=== PATIENT | male | born 1975 | race African-American/Black ===

== ENCOUNTER 2019-01-17 08:20 | Emergency (ER) | payer MEDICARE ==
[~2019-01-17] VITALS: Ht 185.4 cm; Wt 70.3 kg
[2019-01-17] MEDS ORDERED: UNOBMED (08:22)
[2019-01-17 08:25] VITALS: BP 136/93
--- NOTE | 2019-01-17 08:25 | NUR ---
ED Nurse Note: Brought in by RA 29 from home due to left shoulder pain 10/10 and weakness x 2days. hx stroke 2006 and has left side weakness. A/Ox4. No trauma.
[2019-01-17] MEDS ORDERED: Ketorolac 60mg Inj IM ONE (08:30)
--- NOTE | 2019-01-17 08:34 | Emergency Room Report ---
History of Present Illness General Chief Complaint: General Complaint Source: Patient, Medical Record Present Illness HPI 43-year-old male with a self-reported history of OH, stroke with residual left hemiparesis, seizure disorder noncompliant with gabapentin, last seizure 1 year ago, comes ER with left shoulder pain. He reports the pain is constant moderate intensity achy, radiates from his left trip PCM area down to his left arm, with sensation of tingling. He reports no weakness, and EMS report that he was ambulatory at the scene without any history of falls, patient reports he also did not hurt himself other than feeling like he brushed his arm up against a wall, but did not reportedly seem to hurt at the time. Shoulders been hurting since last night. Allergies: Coded Allergies: ERYTHROMYCIN BASE (Verified Allergy, Unknown, 12/07/11) Patient History Past Medical History: see triage record Reviewed Nursing Documentation: PMH: Agreed; PSxH: Agreed Nursing Documentation-PMH Past Medical History: No History, Except For Hx Neurological Problems: Yes - CVA Hx Cerebrovascular Accident: Yes - left side weakness Hx Seizures: Yes Review of Systems All Other Systems: negative except mentioned in HPI Physical Exam Sp02 EP Interpretation: reviewed, normal General Appearance: no apparent distress, alert, non-toxic, other - smells of etoh Head: normocephalic Eyes: bilateral eye normal inspection, bilateral eye PERRL, bilateral eye EOMI ENT: normal ENT inspection, hearing grossly normal, normal pharynx, no angioedema, normal voice, moist mucus membranes Neck: normal inspection, full range of motion, supple, supple/symm/no masses Respiratory: chest non-tender, lungs clear, normal breath sounds, chest symmetrical, palpation of chest normal Cardiovascular #1: normal peripheral pulses, regular rate, rhythm, no edema, no gallop, no JVD, no murmur, no rub Cardiovascular #2: 2+ radial (R), 2+ radial (L) Gastrointestinal: normal inspection, non tender, soft, no mass, no guarding, no rebound Rectal: deferred Genitourinary: normal inspection, no CVA tenderness Musculoskeletal: back normal, gait/station normal, normal range of motion, non- tender, no calf tenderness Neurologic: alert, responsive, client support coordinator III-XII nml as tested, motor strength/tone normal, sensory intact, speech normal Psychiatric: judgement/insight normal, memory normal, mood/affect normal, no suicidal/homicidal ideation Skin: normal color, no rash, warm/dry, normal turgor Lymphatic: no adenopathy Medical Decision Making Diagnostic Impression: Primary Impression: Shoulder pain, left ER Course Patient with L shoulder pain, no major trauma, normal shoulder exam. Given gabapentin bc he reports he used to be on it for seizures, last seizure 1 year ago, and can't afford it. Also given toradol for shoulder pain. Pulse exam, neck, CVS, and neuro exam all also normal. Do not suspect CVA, ACS, PE, spinal cord pathology, or other acute pathology. Patient is coming from a shelter house and will be dc'd back there. EKG Diagnostic Results EKG Time: 08:27 EP Interpretation: no st-t changes, no twi's Rate: normal Rhythm: NSR ST Segments: no acute changes ASA given to the pt in ED: No Rhythm Strip Diag. Results Rhythm Strip Time: 08:27 EP Interpretation: yes Rate: 92 Rhythm: NSR, no PVC's, no ectopy Chest X-Ray Diagnostic Results Chest X-Ray Diagnostic Results : Chest X-Ray Ordered: Yes # of Views/Limited/Complete: 1 View Indication: Chest Pain EP Interpretation: Yes Interpretation: no consolidation, no effusion, no pneumothorax, no acute cardiopulmonary disease Impression: No acute disease Electronically Signed by: Pippa Castillo MD Other X-Ray Diagnostic Results Other X-Ray Diagnostic Results : X-Ray ordered: shoulder # of Views/Limited Vs Complete: Complete Indication: Pain EP Interpretation: Yes Interpretation: no dislocation, no soft tissue swelling, no fractures Impression: No acute disease Electronically Signed by: Pippa Castillo MD Disposition: HOME, SELF-CARE Condition: Stable PIPPA CASTILLO M.D Jan 17, 2019 08:34
[2019-01-17 08:57] LABS: HEMATOCRIT 43.2 % (42.0-52.0); MEAN CORPUSCULAR VOLUME 103 FL (80-99); PLATELET COUNT 262 K/UL (150-450); RED BLOOD COUNT 4.21 M/UL (4.70-6.10); RED CELL DISTRIBUTION WIDTH 12.9 % (11.6-14.8); WHITE BLOOD COUNT 4.5 K/UL (4.8-10.8)
[2019-01-17 09:09] LABS: ANION GAP 13 mmol/L (5-15); BLOOD UREA NITROGEN 13 mg/dL (7-18); CARBON DIOXIDE 26 MMOL/L (21-32); CHLORIDE 103 MMOL/L (98-107); CREATININE 0.7 MG/DL (0.55-1.30); POTASSIUM 4.8 MMOL/L (3.5-5.1); SODIUM 142 MMOL/L (136-145)
[2019-01-17 09:21] LABS: ALANINE AMINOTRANSFERASE 48 U/L (12-78); ALKALINE PHOSPHATASE 64 U/L (46-116); ASPARTATE AMINO TRANSFERASE 77 U/L (15-37); BILIRUBIN,TOTAL 0.5 MG/DL (0.2-1.0)
[2019-01-17 09:26] LABS: ALBUMIN 3.5 G/DL (3.4-5.0)
[2019-01-17] MEDS ORDERED: IBUPROFEN600 MG ORAL (10:21)
[2019-01-17] MEDS ORDERED: GABAPENTIN300 MG ORAL (10:21)
[2019-01-17 10:31] VITALS: BP 138/95
--- NOTE | 2019-01-17 10:31 | NUR ---
ED Nurse Note: Pt cleared by health care Provider for discharge. DC instructions/prescription was given and explained to pt and verbalized understanding of teachings. All medical deviecs such as ID band removed. Pt is AAO x4, ambulatory and left with all personal belongings.
--- NOTE | 2019-01-17 19:15 | Diagnostic Imaging Report ---
Indication: left shoulder pain Findings: 3 views of the left shoulder were obtained. Alignment of the left shoulder is normal. No acute fracture is identified. Soft tissues are unremarkable. Impression: No acute injury
--- NOTE | 2019-01-17 19:15 | Diagnostic Imaging Report ---
Indication: Chest pain Comparison: 07/30/2012 A single view chest radiograph was obtained. Findings: Cardiomediastinal appearance is within normal limits for age. The lungs are clear. Pulmonary vascularity is appropriate. The diaphragmatic contour is smooth and costophrenic angles are sharp. No pleural effusions are identified. There is an old rib fracture on the right. Impression: No acute findings
--- NOTE | 2019-01-18 15:06 | Cardiology Report ---
APPROVED REPORT EKG Measurement Heart [id number] Normal sinus rhythm Rightward axis Pulmonary disease pattern Abnormal ECG
== END 2019-01-17 10:32 | disposition home or self-care (01) ==
LOC: EDBD 08:20 → EMR 08:38
DX: M25.512 Pain in left shoulder (principal); I69.354 Hemiplegia and hemiparesis following cerebral infarction affecting left non-dominant side; Z88.1 Allergy status to other antibiotic agents; G40.909 Epilepsy, unspecified, not intractable, without status epilepticus; Z91.19 Patient's noncompliance with other medical treatment and regimen
CPT/HCPCS: 36415; 71045; 73030; 80053; 84484; 85007; 85025; 93005; 96372; 99284; G0480; 80329

== ENCOUNTER 2019-03-30 04:21 | Emergency (ER) | payer MEDICARE ==
[~2019-03-30] VITALS: Ht 190.5 cm; Wt 68.0 kg
[2019-03-30 04:21] VITALS: BP 146/61
[~2019-03-30 04:21] MED LIST: GABAPENTIN300 MG ORAL; IBUPROFEN600 MG ORAL; ROBAXIN-750750 MG PO; UNOBMED
[2019-03-30 04:51] LABS: BASOPHILS % (AUTO) 1.5 % (0.0-2.0); EOSINOPHILS % (AUTO) 0.6 % (0.0-3.0); HEMATOCRIT 40.8 % (42.0-52.0); HEMOGLOBIN 13.6 G/DL (14.2-18.0); LYMPHOCYTES % (AUTO) 34.7 % (20.0-45.0); MEAN CORPUSCULAR VOLUME 100 FL (80-99); NEUTROPHILS % (AUTO) 60.2 % (45.0-75.0); PLATELET COUNT 320 K/UL (150-450); RED BLOOD COUNT 4.07 M/UL (4.70-6.10); RED CELL DISTRIBUTION WIDTH 12.8 % (11.6-14.8); WHITE BLOOD COUNT 7.2 K/UL (4.8-10.8)
--- NOTE | 2019-03-30 04:56 | Emergency Room Report ---
History of Present Illness General Chief Complaint: Flu Like Symptoms Source: Patient Present Illness HPI This is a 43-year-old male who had a past medical history of a reported CVA in 2006 which left him with tremors. Patient denied having alcohol problems. That he does drink daily. He presents with chief complaint of feeling shaky and weak. [place] nauseous. Denies any fever chills. Does have nausea but no vomiting. No diarrhea. Denies any cough or congestion. This felt weak. Said he drank around 11 PM. Allergies: Coded Allergies: No Known Allergies (Unverified , 01/21/19) Patient History Past Medical History: see triage record, old chart reviewed, CVA/TIA Past Surgical History: other Pertinent Family History: none Social History: Reports: alcohol use; Denies: smoking Immunizations: other Reviewed Nursing Documentation: PMH: Agreed; PSxH: Agreed Nursing Documentation-PMH Past Medical History: No History, Except For Hx Cerebrovascular Accident: Yes - stroke 2006 Review of Systems Constitutional: Reports: malaise, weakness Eye: Denies: eye pain, blurred vision ENT: Denies: ear pain, nose congestion, throat swelling Respiratory: Denies: cough, shortness of breath Cardiovascular: Denies: chest pain, palpitations Gastrointestinal: Reports: nausea; Denies: abdominal pain, diarrhea, vomiting Musculoskeletal: Denies: back pain, joint pain Skin: Denies: rash Neurological: Denies: headache, numbness Endocrine: Denies: increased thirst, increased urine Hematologic/Lymphatic: Denies: easy bruising All Other Systems: negative except mentioned in HPI Physical Exam Vital Signs Date Time Temp Pulse Resp B/P (MAP) Pulse Ox O2 Delivery O2 Flow Rate FiO2 03/30/19 04:15 98.2 98 16 143/84 (103) 100 Room Air vitals normal Sp02 EP Interpretation: reviewed, normal General Appearance: well appearing, no apparent distress, alert Head: normocephalic, atraumatic Eyes: bilateral eye PERRL, bilateral eye EOMI ENT: hearing grossly normal, normal pharynx Neck: full range of motion, supple, no meningismus Respiratory: chest non-tender, lungs clear, normal breath sounds Cardiovascular #1: regular rate, rhythm, no murmur Gastrointestinal: normal bowel sounds, non tender, no mass, no organomegaly, no bruit, non-distended Musculoskeletal: back normal, gait/station normal, normal range of motion Neurologic: alert, oriented x3, other - Tremulous Psychiatric: mood/affect normal Skin: warm/dry Medical Decision Making Diagnostic Impression: Primary Impression: Alcohol intoxication Qualified Codes: F10.920 - Alcohol use, unspecified with intoxication, uncomplicated Additional Impression: Hypokalemia ER Course Patient presents with weakness and nausea. This secondary to alcohol intoxication. She does not believe that he has a drinking problem. I will give him numbers to rehabilitation. He's not suicidal homicidal. Better after IV fluid and Zofran. We'll discharge home once he is more clinically sober. Last Vital Signs Date Time Temp Pulse Resp B/P (MAP) Pulse Ox O2 Delivery O2 Flow Rate FiO2 03/30/19 04:21 97.9 81 20 146/61 99 Room Air Status: improved Disposition: HOME, SELF-CARE Condition: Stable Additional Instructions: Abstain from alcohol. Follow-up with your doctor in 7 days. Return if symptom worsen. Costa Torres MD Mar 30, 2019 04:56
[2019-03-30 05:06] LABS: ANION GAP 17 mmol/L (5-15); BLOOD UREA NITROGEN 10 mg/dL (7-18); CALCIUM 9.1 MG/DL (8.5-10.1); CARBON DIOXIDE 26 MMOL/L (21-32); CHLORIDE 101 MMOL/L (98-107); SODIUM 144 MMOL/L (136-145)
[2019-03-30 05:17] LABS: APPEARANCE,URINE CLEAR; BILIRUBIN, URINE NEGATIVE (NEGATIVE); GLUCOSE, URINE (UA) NEGATIVE (NEGATIVE); KETONES,URINE 4+ (NEGATIVE); LEUKOCYTE ESTERASE ,URINE NEGATIVE (NEGATIVE); NITRITE,URINE NEGATIVE (NEGATIVE); PH,URINE 5 (4.5-8.0); UROBILINOGEN,URINE NORMAL MG/DL (0.0-1.0)
[2019-03-30 05:20] LABS: PROTEIN,URINE NEGATIVE (NEGATIVE)
[2019-03-30 05:21] LABS: COLOR,URINE YELLOW
[2019-03-30 06:28] VITALS: BP 149/87
[2019-03-30 07:35] VITALS: BP 145/87
[2019-03-30] MEDS ORDERED: NKM (08:42)
== END 2019-03-30 07:35 | disposition home or self-care (01) ==
LOC: EDBD 04:21 → EMR 04:35 → MERGE 04:35 → EMR 07:35
DX: F10.120 Alcohol abuse with intoxication, uncomplicated (principal); E87.6 Hypokalemia; R53.1 Weakness; Z86.73 Personal history of transient ischemic attack (TIA), and cerebral infarction without residual deficits
CPT/HCPCS: 36415; 80048; 80307; 81001; 85025; 96361; 96374; 96376; 99284; G0480; J2405; 80329; J8499

== ENCOUNTER 2019-03-30 08:36 | Inpatient (IN) | payer MEDICARE ==
[2019-03-30] VITALS (7 sets, daily range): BP systolic 156–167; BP diastolic 89–100
[~2019-03-30] VITALS: Ht 185.4 cm; Wt 70.3 kg
[2019-03-30] MEDS ORDERED: NKM (08:42)
[2019-03-30] MEDS ORDERED: Thiamine HCl 100 MG in D5W 55 ML IV ONE (08:45)
[2019-03-30] MEDS ORDERED: levETIRAcetam 500mg/NS100ml 100 ML IVPB ONE (08:45)
[2019-03-30] MEDS ORDERED: LORazepam Inj 2mg/ml 1ml IV ONE (08:45)
--- NOTE | 2019-03-30 09:00 | NUR ---
ED Nurse Note: PT CAME IN DUE TO NAUSEA/VOMITING AND DIARRHEA SINCE YESTERDAY. PT WAS SEEN HERE AND WAS JUST DISCHARGED FROM THE ED AN HOUR AGO FOR ALCOHOL INTOXICATION. NOTED STRONG ALCOHOL SMELL FROM THE PT. ALS NOTED BILATERAL HAND TREMORS. PT IS AAO X4, AMBULATORY WITH NON LABORED BREATHING. VSS.
--- NOTE | 2019-03-30 09:16 | Emergency Room Report ---
History of Present Illness General Chief Complaint: Nausea, Vomiting, and Diarrhea Source: Patient Present Illness HPI The patient was evaluated earlier with shortness of breath and cough. Is found to have an elevated blood alcohol. He was observed here and discharged earlier. When he was sitting on the bus bench he had a episode of passing out. He's not sure if he had a seizure. He bit his tongue. Passerby notified us that he had had this episode that was unwitnessed. He was brought back into the emergency department. Patient feels tremulous and weak. He admits to binge drinking for several days. He was last sober for at least a week one week ago. He denies any fevers , chills, vomiting blood. The patient's not taking any medication for seizures. He supposed be taking gabapentin. The patient states he had a stroke several years ago and walks with a cane. Patient also complains about wheezing. She denies having an inhaler at this time. He has some productive phlegm but denies color or blood. Allergies: Coded Allergies: ERYTHROMYCIN BASE (Verified Allergy, Unknown, 12/07/11) Nursing Documentation-PMH Hx Neurological Problems: Yes - CVA Hx Cerebrovascular Accident: Yes - left side weakness Hx Seizures: Yes Physical Exam Vital Signs Date Time Temp Pulse Resp B/P (MAP) Pulse Ox O2 Delivery O2 Flow Rate FiO2 03/30/19 08:39 98.2 93 19 167/91 (116) 98 Room Air Medical Decision Making Diagnostic Impression: Primary Impression: Intractable vomiting Qualified Codes: R11.2 - Nausea with vomiting, unspecified Additional Impressions: Abdominal pain Qualified Codes: R10.13 - Epigastric pain Gastritis Qualified Codes: K29.20 - Alcoholic gastritis without bleeding Alcohol withdrawal Qualified Codes: F10.239 - Alcohol dependence with withdrawal, unspecified Bronchospasm ER Course Patient admits to binge drinking had an episode of loss of consciousness with biting his tongue. Differential includes syncope, seizure, arrhythmia amongst others. The patient will be evaluated with EKG, chest x-ray, CT of the head and labs. The patient will receive IV hydration, Ativan and Keppra. In addition he'll receive breathing treatments. EKG without injury. CT atrophy and small vessel disease. CMP and CBC unremarkable. Normal troponin. Elevated AST. Tox positive for THC. Blood alcohol 191. Still with vomiting and epigastric pain. Fairly tremulous. Still denies daily drinking. Cannot exclude withdrawal seizure or new onset seizure. No more seizure activity. Admit Observation telemetry. Laboratory Tests Test 03/30/19 08:52 03/30/19 09:50 White Blood Count 6.3 K/UL (4.8-10.8) Red Blood Count 3.92 M/UL (4.70-6.10) L Hemoglobin 13.0 G/DL (14.2-18.0) L Hematocrit 39.4 % (42.0-52.0) L Mean Corpuscular Volume 101 FL (80-99) H Mean Corpuscular Hemoglobin 33.3 PG (27.0-31.0) H Mean Corpuscular Hemoglobin Concent 33.1 G/DL (32.0-36.0) Red Cell Distribution Width 12.9 % (11.6-14.8) Platelet Count 280 K/UL (150-450) Mean Platelet Volume 6.2 FL (6.5-10.1) L Neutrophils (%) (Auto) 72.3 % (45.0-75.0) Lymphocytes (%) (Auto) 23.8 % (20.0-45.0) Monocytes (%) (Auto) 2.1 % (1.0-10.0) Eosinophils (%) (Auto) 0.1 % (0.0-3.0) Basophils (%) (Auto) 1.7 % (0.0-2.0) Sodium Level 143 MMOL/L (136-145) Potassium Level 3.6 MMOL/L (3.5-5.1) Chloride Level 101 MMOL/L (98-107) Carbon Dioxide Level 26 MMOL/L (21-32) Anion Gap 16 mmol/L (5-15) H Blood Urea Nitrogen 9 mg/dL (7-18) Creatinine 1.0 MG/DL (0.55-1.30) Estimate Glomerular Filtration Rate > 60 mL/min (>60) Glucose Level 90 MG/DL (74-106) Calcium Level 9.1 MG/DL (8.5-10.1) Phosphorus Level 3.5 MG/DL (2.5-4.9) Magnesium Level 1.5 MG/DL (1.8-2.4) L Total Bilirubin 0.5 MG/DL (0.2-1.0) Aspartate Amino Transferase (AST) 78 U/L (15-37) H Alanine Aminotransferase (ALT) 34 U/L (12-78) Alkaline Phosphatase 75 U/L (46-116) Total Creatine Kinase 287 U/L (26-308) Troponin I 0.000 ng/mL (0.000-0.056) Total Protein 8.5 G/DL (6.4-8.2) H Albumin 4.5 G/DL (3.4-5.0) Globulin 4.0 g/dL Albumin/Globulin Ratio 1.1 (1.0-2.7) Salicylates Level 4.3 ug/mL (2.8-20) Acetaminophen Level < 2 MCG/ML (10-30) L Serum Alcohol 191 mg/dL Urine Color Yellow Urine Appearance Clear Urine pH 5 (4.5-8.0) Urine Specific [place] 1.020 (1.005-1.035) Urine Protein 1+ (NEGATIVE) H Urine Glucose (UA) Negative (NEGATIVE) Urine Ketones 4+ (NEGATIVE) H Urine Blood 1+ (NEGATIVE) H Urine Nitrite Negative (NEGATIVE) Urine Bilirubin Negative (NEGATIVE) Urine Urobilinogen Normal MG/DL (0.0-1.0) Urine Leukocyte Esterase Negative (NEGATIVE) Urine RBC 0-2 /HPF (0 - 0) H Urine WBC 0 /HPF (0 - 0) Urine Squamous Epithelial Cells Occasional /LPF Urine Bacteria Occasional /HPF (NONE) Urine Mucus Few /LPF (NONE/OCC) H Urine Opiates Screen Negative (NEGATIVE) Urine Barbiturates Screen Negative (NEGATIVE) Phencyclidine (PCP) Screen Negative (NEGATIVE) Urine Amphetamines Screen Negative (NEGATIVE) Urine Benzodiazepines Screen Negative (NEGATIVE) Urine Cocaine Screen Negative (NEGATIVE) Urine Marijuana (THC) Screen Positive (NEGATIVE) H EKG Diagnostic Results Rate: normal Rhythm: NSR ST Segments: no acute changes - Atrial enlargement Rhythm Strip Diag. Results EP Interpretation: yes Rhythm: NSR, no PVC's, no ectopy CT/MRI/US Diagnostic Results CT/MRI/US Diagnostic Results : Imaging Test Ordered: Head Impression Small vessel disease and atrophy no bleed Last Vital Signs Date Time Temp Pulse Resp B/P (MAP) Pulse Ox O2 Delivery O2 Flow Rate FiO2 03/30/19 18:17 Room Air 03/30/19 17:00 97.9 77 15 158/92 100 6/6/19 09:53 21 Status: improved Disposition: PLACE IN OBSERVATION Condition: Serious Nitesh Keita MD Mar 30, 2019 09:16
--- NOTE | 2019-03-30 09:18 | NUR ---
ED Nurse Note: Blood specimen sent.
--- NOTE | 2019-03-30 09:20 | NUR ---
ED Nurse Note: PT TAKEN TO CT VIA LENI. VSS
[2019-03-30] MEDS ORDERED: Ipratropium 0.02% Inh Soln 2.5ml UD HHN ONE (09:30)
[2019-03-30] MEDS ORDERED: Albuterol ud Inhalation HHN ONE (09:30)
[2019-03-30 09:32] LABS: BASOPHILS % (AUTO) 1.7 % (0.0-2.0); EOSINOPHILS % (AUTO) 0.1 % (0.0-3.0); HEMATOCRIT 39.4 % (42.0-52.0); LYMPHOCYTES % (AUTO) 23.8 % (20.0-45.0); MEAN CORPUSCULAR VOLUME 101 FL (80-99); MONOCYTES % (AUTO) 2.1 % (1.0-10.0); NEUTROPHILS % (AUTO) 72.3 % (45.0-75.0); PLATELET COUNT 280 K/UL (150-450); RED BLOOD COUNT 3.92 M/UL (4.70-6.10); RED CELL DISTRIBUTION WIDTH 12.9 % (11.6-14.8); WHITE BLOOD COUNT 6.3 K/UL (4.8-10.8)
--- NOTE | 2019-03-30 09:35 | NUR ---
ED Nurse Note: PT CAME BACK FROM CT. VSS. RT AT THE BED SIDE FOR BREATHING TREATMENT.
[2019-03-30 09:40] LABS: ANION GAP 16 mmol/L (5-15); BLOOD UREA NITROGEN 9 mg/dL (7-18); CALCIUM 9.1 MG/DL (8.5-10.1); CARBON DIOXIDE 26 MMOL/L (21-32); CHLORIDE 101 MMOL/L (98-107); POTASSIUM 3.6 MMOL/L (3.5-5.1); SODIUM 143 MMOL/L (136-145)
[2019-03-30 09:44] LABS: ALANINE AMINOTRANSFERASE 34 U/L (12-78); ALBUMIN 4.5 G/DL (3.4-5.0); ALBUMIN/GLOBULIN RATIO 1.1 (1.0-2.7); ALKALINE PHOSPHATASE 75 U/L (46-116); ASPARTATE AMINO TRANSFERASE 78 U/L (15-37); BILIRUBIN,TOTAL 0.5 MG/DL (0.2-1.0); CREATINE KINASE 287 U/L (26-308)
--- NOTE | 2019-03-30 09:53 | Diagnostic Imaging Report ---
Indication: Head trauma headache Technique: Contiguous 5 mm thick transaxial imaging of the head obtained in a Siemens Sensation [address] scanner. Soft tissue and bone windows generated. Automatic Exposure Control was utilized. Total Dose length Product (DLP): 1404.[address] Dose Index Volume (CTDIvol): 70.38 mGy Comparison: 07/30/2012 Findings: There is moderate prominence of the ventricles, basal cisterns, and cerebral sulci consistent with cerebral and cerebellar atrophy. Moderate, nonspecific, white matter hypoattenuation is noted throughout the brain consistent with chronic small vessel disease. There is no midline shift, edema, acute hemorrhage, mass effect, or abnormal extra-axial fluid collections. Bones are unremarkable. Impression: No acute intracranial bleed, mass effect or edema. Moderate atrophy of the cerebrum and cerebellum. Evidence of chronic small vessel disease involving white matter tracts. The CT scanner at [facility] is accredited by the [employer] and the scans are performed using dose optimization techniques as appropriate to a performed exam including Automatic Exposure control.
--- NOTE | 2019-03-30 10:00 | NUR ---
ED Nurse Note: PT REPORTS LESS TREMORS AT THIS TIME. VSS.
[2019-03-30 10:10] LABS: APPEARANCE,URINE CLEAR; BILIRUBIN, URINE NEGATIVE (NEGATIVE); GLUCOSE, URINE (UA) NEGATIVE (NEGATIVE); KETONES,URINE 4+ (NEGATIVE); LEUKOCYTE ESTERASE ,URINE NEGATIVE (NEGATIVE); NITRITE,URINE NEGATIVE (NEGATIVE); PH,URINE 5 (4.5-8.0); PROTEIN,URINE 1+ (NEGATIVE); UROBILINOGEN,URINE NORMAL MG/DL (0.0-1.0)
[2019-03-30 10:12] LABS: COLOR,URINE YELLOW
[2019-03-30 10:20] LABS: PHOSPHORUS 3.5 MG/DL (2.5-4.9)
--- NOTE | 2019-03-30 16:28 | NUR ---
ED Nurse Note: REPORT GIVEN TO KURT ORTIZ OF MED SURG UNIT. BP 158/100 THEY ARE ASKING FOR MEDICATION TO LOWER DOWN BP. DR VAZQUEZ NOTIFIED WITH NO NEW ORDERS.
--- NOTE | 2019-03-30 16:34 | NUR ---
ED Nurse Note: INFORMED CHARGE NURSE OF MED SURG UNIT THAT DR VAZQUEZ WAS NOTIFIED OF BP 158/100 BUT WITH NO NEW ORDERS.
--- NOTE | 2019-03-30 17:00 | NUR ---
ED Nurse Note: PT TRANSFERRED TO MED SURG UNIT VIA GURNEY WITH LITHOPONE CHARGER AND ALL BELONGINGS SENT. VSS.
--- NOTE | 2019-03-30 18:12 | NUR ---
NURSE NOTES: Pt admitted for observation for n/v . Inventory complete. Does not take medication. Minimal tremors. States he is a binge drinker and has no history of high blood pressure. bp 183/103 retaken b/p 160/103. States last episode of vomitus was this morning. Will preced with observation admission
[2019-03-30] MEDS ORDERED: Miralax 17gm pkt ORAL PRN (18:15)
[2019-03-30] MEDS ORDERED: LORazepam Inj 2mg/ml 1ml IV PRN (18:15)
[2019-03-30] MEDS ORDERED: chlordiazePOXIDE 25mg Cap ORAL PRN (18:15)
[2019-03-30] MEDS ORDERED: Morphine Sulfate 2mg/ml Inj(IV/IM USE ONLY) IVP PRN (18:15)
--- NOTE | 2019-03-30 19:30 | NUR ---
NURSE NOTES: Report taken from DIANA Hsu. Patient is awake and in bed, A&Ox4. No signs of distress on room air. Minor complaint of abdominal pain, 03/03. MD ordered patient to be NPO, RN made patient aware of order for the night. IV site c/d/i and patent, fluids to be hung per orders. No skin issues. Patient does seem to be anxious and beginning minor withdraw symptoms, will assess and monitor. Bed in lowest position, call light within reach.
--- NOTE | 2019-03-30 19:33 | NUR ---
NURSE NOTES: During interview pt stated he had a sz roughly 4 years ago, Dr Champion made aware that pt stated he was vomiting bright red, and had soft black stool. Pt states he is a poor eater and has been feeling weak. Alcohol withdrawal intervention in place gave orders for NPO and swabs to be done since [facility]. Pt is malodorous towels and soap given. Report given to oncoming nurse.
--- NOTE | 2019-03-30 19:36 | History & Physical ---
History and Physical History & Physicial Dictated for Int Med-Dr Diaz no. [id number]. Marc Temple MD Mar 30, 2019 19:36
--- NOTE | 2019-03-30 19:38 | NUR ---
HAND-OFF: Report given to José ORTIZ.
[2019-03-30] MEDS: Heparin 5000 units/ml inj SUBQ SCH (21:00)
[2019-03-30] MEDS: Folic Acid 1 MG, Magnesium Sulfate 2,000 MG, Multivitamin - 12 Injection 10 ML in NS w/... IV SCH (21:07)
[2019-03-30] MEDS: Zolpidem 5mg tab ORAL PRN (22:39)
--- NOTE | 2019-03-30 22:54 | NUR ---
NURSE NOTES: Patient exhibiting signs of withdrawal. Minor tremors, beads of sweat on forehead, patient is having some anxiety. Continue to monitor
[2019-03-31] VITALS: BP 164/91
--- NOTE | 2019-03-31 00:45 | History and Physical Report ---
DATE OF ADMISSION: 03/30/2019 CHIEF COMPLAINT: The patient is a 43-year-old male, who presents with a chief complaint of syncopal episode. HISTORY OF PRESENT ILLNESS: The patient initially presented to [place] emergency room complaining of shortness of breath and cough. The patient was found to have elevated serum alcohol level. The patient was discharged. The patient was apparently sitting at the bus stop. The patient apparently passed out. It is unknown whether the patient had a seizure or had a syncopal episode. The patient had bit his tongue. The patient presented to [place] emergency room. The patient is admitted for syncopal episode to rule out seizure versus syncopal episode. REVIEW OF SYSTEMS: Unable to assess secondary to the patient's mental status. PAST MEDICAL HISTORY: Significant for: 1. Cerebrovascular accident. 2. Ataxia. 3. Hemiplegia secondary to cerebrovascular accident. PAST SURGICAL HISTORY: The patient denies. CURRENT MEDICATIONS: 1. Gabapentin 300 mg one tablet p.o. 3 times a day. 2. Ibuprofen 600 mg p.o. q.6 hours p.r.n. ALLERGIES: Erythromycin. SOCIAL HISTORY: The patient is single. The patient denies tobacco or alcohol use. PHYSICAL EXAMINATION: VITAL SIGNS: Temperature 97.9, respirations 17, pulse 89, and blood pressure 156/89. GENERAL: The patient is a thin-appearing male, in no apparent distress. HEENT: Eyes, pupils are equal and responsive to light and accommodation. Extraocular movements are intact. NECK: Supple without lymphadenopathy. CHEST: Lungs are clear to auscultation bilaterally without wheezes or rales. CARDIOVASCULAR: Regular rhythm and rate. S1 and S2 are normal without murmurs, rubs, or gallops. ABDOMEN: Soft, nontender, and nondistended. Positive bowel sounds. No evidence of hepatosplenomegaly. Currently, no rebound or guarding noted. EXTREMITIES: Negative for clubbing, cyanosis, or edema. RECTAL/GENITAL: Refused. NEUROLOGIC: Cranial nerves II through XII are grossly intact without focal deficits. The patient does have ataxia. LABORATORY STUDIES: WBC 6.2, hemoglobin 13.0, hematocrit 39.4, and platelets 208,000. Sodium 143, potassium 4.6, chloride 101, CO2 26, BUN 9, creatinine 1.0, and glucose 90. Urine toxicology was positive for marijuana. ASSESSMENT: This is a 43-year-old male. 1. Syncopal episode. 2. History of cerebrovascular disease. 3. Ataxia. 4. Hemiplegia. 5. Alcohol abuse. TREATMENT: 1. Syncopal episode. This may be cerebrovascular accident versus cardiac in nature. A Cardiology consultation is pending. An initial CT scan of the brain showed no acute intracranial bleed, mass, or infarct. 2. Ataxia. 3. Hemiplegia. 4. Alcohol abuse. Marc Temple M.D. DR: CIRA JOB#: [id number] CC:
[2019-03-31 03:54] VITALS: BP 154/100
[2019-03-31 06:30] LABS: BASOPHILS % (AUTO) 1.7 % (0.0-2.0); EOSINOPHILS % (AUTO) 0.9 % (0.0-3.0); HEMOGLOBIN 12.5 G/DL (14.2-18.0); LYMPHOCYTES % (AUTO) 28.8 % (20.0-45.0); MEAN CORPUSCULAR VOLUME 100 FL (80-99); MONOCYTES % (AUTO) 8.1 % (1.0-10.0); NEUTROPHILS % (AUTO) 60.5 % (45.0-75.0); PLATELET COUNT 239 K/UL (150-450); RED BLOOD COUNT 3.71 M/UL (4.70-6.10); RED CELL DISTRIBUTION WIDTH 12.2 % (11.6-14.8); WHITE BLOOD COUNT 4.2 K/UL (4.8-10.8)
[2019-03-31 06:59] LABS: ALANINE AMINOTRANSFERASE 30 U/L (12-78); ALBUMIN 4.1 G/DL (3.4-5.0); ALBUMIN/GLOBULIN RATIO 1.1 (1.0-2.7); ALKALINE PHOSPHATASE 69 U/L (46-116); ANION GAP 11 mmol/L (5-15); ASPARTATE AMINO TRANSFERASE 57 U/L (15-37); BILIRUBIN,TOTAL 1.5 MG/DL (0.2-1.0); BLOOD UREA NITROGEN 8 mg/dL (7-18); CALCIUM 9.1 MG/DL (8.5-10.1); CARBON DIOXIDE 28 MMOL/L (21-32); CHLORIDE 97 MMOL/L (98-107); CREATININE 0.9 MG/DL (0.55-1.30); SODIUM 136 MMOL/L (136-145)
[2019-03-31 07:04] LABS: BILIRUBIN,DIRECT 0.3 MG/DL (0.0-0.3)
--- NOTE | 2019-03-31 07:23 | NUR ---
HAND-OFF: Report given to DIANA Luu. Patient is awake and in bed. Endoresed to RN that need to collect stool sample. .
--- NOTE | 2019-03-31 07:24 | NUR ---
NURSE NOTES: Received report from DIANA Ferrer. Patient a/o x 4. Denies any pain at this time. No vomiting noted at this time. Bed in lowest position, call light within reach. Will continue to monitor.
[2019-03-31 08:00] VITALS: BP 157/106
[2019-03-31] MEDS: Heparin 5000 units/ml inj SUBQ SCH ×2 (08:33→20:54)
--- NOTE | 2019-03-31 10:01 | NUR ---
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 ALCOHOL WITHDRAWAL . SEIZURE VS: BP 167/91, P 93, T 98.3, RR 19, SpO2 98 WBC 4.2, RBC 3.71, H&H 12.3/37.0, Mag 1.5, AST [address]:Moderate atrophy of the cerebrum and cerebellum. IS:NS x1L IV PEPCID 20mg IVP ZOFRAN 4mg IVP MED/SURG STATUS
--- NOTE | 2019-03-31 11:20 | NUR ---
Social Work This Sw met with patient (due to possible substance abuse, homelessness). This SW met with patient who has had a stroke in the past, remains independent with ADLs, ambulation (does not require any DME), while has a slurred speech. Patient remains alert/oriented x4 and making his own decisions (explains to contact his father, Ana Leger: [phone] as needed). Patient explains he was homeless, but has been living at the "[facility]" and to contact the corporate real estate manager, Joaquim Sorensen @ [phone] to return there (Margot, Homeless Coordinator to follow). Patient admitting to a history of anxiety and depression, and does take any medication for this. Patient admits to binge drinking (alcohol) when feeling anxious, but does not believe he has a chronic problem with alcohol (typically drinking 1-2 drinks, according to patient). Patient expressed that he is concerned that he cannot return to [facility] due to he was unable to pay the rent (patient receives 1300 per month from SSI and a pension). This Sw left a message with the corporate real estate manager, Joaquim Sorensen (awaiting call return at this time). Mental Health counseling resources provided to patient.
[2019-03-31 12:00] VITALS: BP 160/106
--- NOTE | 2019-03-31 14:55 | NUR ---
P.T NOTE P.T EVALUATION COMPLETED. PATIENT IS BASELINE INDEPENDENT WITH ADL/FUNCTIONAL MOBILITY AND GAIT/LOCOMOTION THEREFORE SKILLED P.T SERVICE IS NOT WARRANTED AT THIS TIME. THANK YOU FOR THIS REFERRAL. Addendum: 03/31/19 at 1455 by RUBEN MOODY PT Amended: Links added.
--- NOTE | 2019-03-31 15:04 | NUR ---
HOMELESS COORDINATOR HC spoke with patient and patient is alert and oriented. Patient does have a contact number, . Patient uses a cane not at beside. Patient is currently living at [facility] [id number] [place] [address]. Patient has been living at this location since October 2018. 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 Patient states he get $1,300 in SSI but only receives $500 after deductions and fees. Patient states he has no substance abuse problem. Patient states he suffer from anxiety and depression and is not taking any medication. Patient states he has a program he is involved in and refuses mental health resources. HC spoke with Joaquim Frost [phone] from [facility] about patients discharge plans. Joaquim stated patient is always welcomed back and will always have a home for him if he needs it. Joaquim also stated he would like patient back immediately after he is better. Joaquim Frost provided an email address [email or web address]. Patient is okay with returning back to [facility]. HC made a follow-up appointment @ [facility] [address] [place] [address] March 2pm [phone]. Patient asked for clothing; shirt, socks, jeans. Patient continues to require medical intervention. Will continue to monitor and assist as needed.
[2019-03-31] MEDS ORDERED: Promethazine/Codeine 5ml UD ORAL PRN (15:15)
[2019-03-31] MEDS ORDERED: Albuterol/Ipratropium 3ml neb HHN PRN (15:15)
--- NOTE | 2019-03-31 15:17 | Consultation ---
History of Present Illness General Date patient seen: Mar 31, 2019 Chief Complaint: Nausea, Vomiting, and Diarrhea Present Illness HPI 43 year old male with hx of ETOH and drug abuse, homeless, presented to ER with CC of passing out. He's not sure if he had a seizure. He bit his tongue. Patient feels tremulous and weak. He admits to binge drinking for several days. He was last sober for at least a week one week ago. The patient's not taking any medication for seizures. The patient states he had a stroke several years ago and walks with a cane. Patient also complains about wheezing. Allergies: Coded Allergies: ERYTHROMYCIN BASE (Verified Allergy, Unknown, 12/07/11) Medication History Scheduled Gabapentin* (Gabapentin*), 300 MG ORAL THREE TIMES A DAY No Known Medications* (NKM - No Known Medications*), 0 ., (Reported) Scheduled PRN Ibuprofen* (Motrin*), 600 MG ORAL Q8H PRN for For Pain Miscellaneous Medications Unable to Obtain Medications (Unable To Obtain Meds), (Reported) Discontinued Medications Ibuprofen* (Motrin*), 600 MG ORAL Q8H PRN for For Pain Discontinued Reason: Therapy completed Methocarbamol* (Robaxin-750*), 750 MG PO TID Discontinued Reason: Therapy completed Patient History Healthcare decision maker N Resuscitation status Full Code Advanced Directive on File No Past Medical/Surgical History Past Medical/Surgical History: (1) ETOH abuse (2) Alcohol withdrawal seizure (3) Drug abuse Review of Systems All Other Systems: negative except mentioned in HPI Physical Exam General Appearance: thin Lines, tubes and drains: peripheral HEENT: normocephalic, atraumatic Neck: non-tender, normal alignment Respiratory/Chest: chest wall non-tender, normal breath sounds Cardiovascular/Chest: normal peripheral pulses, regular rhythm Abdomen: normal bowel sounds Genitourinary/Rectal: normal genital exam Extremities: normal range of motion Skin Exam: normal pigmentation Last 24 Hour Vital Signs Date Time Temp Pulse Resp B/P (MAP) Pulse Ox O2 Delivery O2 Flow Rate FiO2 03/31/19 12:20 160/106 03/31/19 12:00 99.3 78 18 160/106 (124) 100 03/31/19 09:00 Room Air 03/31/19 08:00 98.0 65 18 157/106 (123) 99 03/31/19 03:54 98.7 59 18 154/100 (118) 99 03/31/19 03:39 154/100 03/31/19 00:00 98.0 70 18 164/91 (115) 100 03/30/19 21:06 163/100 03/30/19 20:45 160/90 (113) 03/30/19 20:00 98.1 67 19 163/100 (121) 99 03/30/19 18:17 Room Air 03/30/19 18:16 Room Air 03/30/19 17:00 97.9 77 15 158/92 100 Room Air 03/30/19 16:30 97.9 86 16 158/100 100 Room Air Intake and Output 03/30/19 03/31/19 19:00 07:00 Intake Total 2356 ml 150 ml Output Total 750 ml Balance 2356 ml -600 ml Intake Oral 150 ml IV Total 2356 ml Output Urine Total 750 ml # Voids 1 2 Laboratory Tests Test 03/31/19 05:40 White Blood Count 4.2 K/UL (4.8-10.8) L Red Blood Count 3.71 M/UL (4.70-6.10) L Hemoglobin 12.5 G/DL (14.2-18.0) L Hematocrit 37.0 % (42.0-52.0) L Mean Corpuscular Volume 100 FL (80-99) H Mean Corpuscular Hemoglobin 33.8 PG (27.0-31.0) H Mean Corpuscular Hemoglobin Concent 33.9 G/DL (32.0-36.0) Red Cell Distribution Width 12.2 % (11.6-14.8) Platelet Count 239 K/UL (150-450) Mean Platelet Volume 6.5 FL (6.5-10.1) Neutrophils (%) (Auto) 60.5 % (45.0-75.0) Lymphocytes (%) (Auto) 28.8 % (20.0-45.0) Monocytes (%) (Auto) 8.1 % (1.0-10.0) Eosinophils (%) (Auto) 0.9 % (0.0-3.0) Basophils (%) (Auto) 1.7 % (0.0-2.0) Sodium Level 136 MMOL/L (136-145) Potassium Level 4.0 MMOL/L (3.5-5.1) Chloride Level 97 MMOL/L (98-107) L Carbon Dioxide Level 28 MMOL/L (21-32) Anion Gap 11 mmol/L (5-15) Blood Urea Nitrogen 8 mg/dL (7-18) Creatinine 0.9 MG/DL (0.55-1.30) Estimat Glomerular Filtration Rate > 60 mL/min (>60) Glucose Level 78 MG/DL (74-106) Calcium Level 9.1 MG/DL (8.5-10.1) Total Bilirubin 1.5 MG/DL (0.2-1.0) H Direct Bilirubin 0.3 MG/DL (0.0-0.3) Aspartate Amino Transf (AST/SGOT) 57 U/L (15-37) H Alanine Aminotransferase (ALT/SGPT) 30 U/L (12-78) Alkaline Phosphatase 69 U/L (46-116) Total Protein 8.0 G/DL (6.4-8.2) Albumin 4.1 G/DL (3.4-5.0) Globulin 3.9 g/dL Albumin/Globulin Ratio 1.1 (1.0-2.7) Height (Feet): 6 Height (Inches): 1.00 Weight (Pounds): 155 Medications Current Medications Medications (Trade) Dose Ordered Sig/Jin Route PRN Reason Start Time Stop Time Status Last Admin Dose Admin Acetaminophen (Tylenol) 650 mg Q4H PRN ORAL fever 03/30/19 18:15 04/29/19 18:14 Chlordiazepoxide (Librium) 25 mg Q6H PRN ORAL Agitation 03/30/19 18:15 04/06/19 18:14 03/31/19 08:32 Clonidine HCl (Catapres Tab) 0.1 mg Q4H PRN ORAL For High Blood Pressure >160 03/30/19 18:15 04/29/19 18:14 03/31/19 12:20 Dextrose (Dextrose 50%) 25 ml Q30M PRN IV Hypoglycemia 03/30/19 18:15 04/29/19 18:14 Dextrose (Dextrose 50%) 50 ml Q30M PRN IV Hypoglycemia 03/30/19 19:00 04/29/19 18:59 Folic Acid 1 mg/ Magnesium Sulfate 2000 mg/ Multivitamins 10 ml/Potassium Chloride/Sodium Chloride 1,014.2 ml @ 125 mls/ hr Q24H IV 03/30/19 20:00 04/29/19 19:59 03/30/19 21:07 Gabapentin (Neurontin) 300 mg THREE TIMES A DAY ORAL 03/31/19 09:00 04/30/19 08:59 03/31/19 12:20 Heparin Sodium (Porcine) (Heparin 5000 units/ml) 5,000 units EVERY 12 HOURS SUBQ 03/30/19 21:00 04/29/19 20:59 03/31/19 08:33 Lorazepam (Ativan 2mg/ml 1ml) 2 mg Q1H PRN IV seizures 03/30/19 18:15 04/06/19 18:14 Morphine Sulfate (Morphine Sulfate) 1 mg Q4H PRN IVP For Pain 03/30/19 18:15 04/06/19 18:14 Ondansetron HCl (Zofran) 4 mg Q6H PRN IVP Nausea & Vomiting 03/30/19 18:15 04/29/19 18:14 03/31/19 10:07 Polyethylene Glycol (Miralax) 17 gm HSPRN PRN ORAL Constipation 03/30/19 18:15 04/29/19 18:14 Zolpidem Tartrate (Ambien) 5 mg HSPRN PRN ORAL Insomnia 03/30/19 18:15 04/06/19 18:14 03/30/19 22:39 Assessment/Plan Problem List: (1) Purulent bronchitis ICD Codes: J41.1 - Mucopurulent chronic bronchitis SNOMED: 69360663 (2) Intractable vomiting ICD Codes: R11.10 - Vomiting, unspecified SNOMED: 661641070 Qualifiers: Qualified Codes: R11.2 - Nausea with vomiting, unspecified (3) Lower GI bleeding ICD Codes: K92.2 - Gastrointestinal hemorrhage, unspecified SNOMED: 13193900 (4) Drug abuse ICD Codes: F19.10 - Other psychoactive substance abuse, uncomplicated SNOMED: 28727343 (5) Alcohol withdrawal seizure ICD Codes: F10.239 - Alcohol dependence with withdrawal, unspecified; R56.9 - Unspecified convulsions SNOMED: 643435352 (6) Homelessness ICD Codes: Z59.0 - Homelessness SNOMED: 73642542 Assessment/Plan: respiratory treatment check sputum on abx Librium for withdraw Neurology to see Eligio Champion MD Mar 31, 2019 15:17
--- NOTE | 2019-03-31 15:28 | NUR ---
NURSE NOTES: Dr. Champion ordered full liquid diet. Noted and and carried out.
[2019-03-31 16:00] VITALS: BP 152/103
[2019-03-31] MEDS: Bactrim-DS 1 tab ORAL SCH (17:27)
[2019-03-31] MEDS: chlordiazePOXIDE 25mg Cap ORAL SCH (17:28)
--- NOTE | 2019-03-31 19:14 | NUR ---
HAND-OFF: Report given to DIANA Kerr. Patient is stable. Endorsed discharge planning packet.
--- NOTE | 2019-03-31 19:15 | NUR ---
NURSE NOTES: Received report from DIANA Luu. Discharge packet received, placed in chart. Patient alert. No distress noted. Bed in low position, locked, side rails up x2, padded as seizure precaution. Call light within reach. Will continue to monitor.
[2019-03-31 20:00] VITALS: BP 149/103
--- NOTE | 2019-03-31 20:46 | Consultation ---
History of Present Illness General Date patient seen: Mar 31, 2019 Chief Complaint: Syncope, Alcohol W/D r/o seizure Referring physician: Dr. Bhavin Diaz Present Illness HPI Elsa Leger is a 43-year-old male with a PMH of CVA with residual hemiplegia and neuropathy who presents with a chief complaint of syncopal episode. He initially presnted to [facility] emergency room complaining of shortness of breath and cough, at which time he was found to have elevated serum alcohol level. He was discharged from ED but was later found unconscious at the bus stop outside, having bitten his tongue. He is now admitted for synope vs seizure work up. Allergies: Coded Allergies: ERYTHROMYCIN BASE (Verified Allergy, Unknown, 12/07/11) Medication History Scheduled Gabapentin* (Gabapentin*), 300 MG ORAL THREE TIMES A DAY No Known Medications* (NKM - No Known Medications*), 0 ., (Reported) Scheduled PRN Ibuprofen* (Motrin*), 600 MG ORAL Q8H PRN for For Pain Miscellaneous Medications Unable to Obtain Medications (Unable To Obtain Meds), (Reported) Discontinued Medications Ibuprofen* (Motrin*), 600 MG ORAL Q8H PRN for For Pain Discontinued Reason: Therapy completed Methocarbamol* (Robaxin-750*), 750 MG PO TID Discontinued Reason: Therapy completed Patient History Healthcare decision maker N Resuscitation status Full Code Advanced Directive on File No Past Medical/Surgical History Past Medical/Surgical History: (1) Seizure (2) Alcohol withdrawal (3) Drug abuse (4) Alcohol withdrawal seizure (5) Purulent bronchitis Review of Systems Constitutional: Reports: weakness; Denies: no symptoms, see HPI, chills, sweats , fever, malaise, other Eye: Denies: no symptoms, see HPI, eye pain, blurred vision, tearing, double vision, nose pain, nose congestion, acuity changes, discharge, other ENT: Denies: no symptoms, see HPI, ear pain, ear discharge, nose pain, nose congestion, throat pain, throat swelling, mouth pain, hearing loss, nasal discharge, other Respiratory: Reports: cough; Denies: no symptoms, see HPI, orthopnea, shortness of breath, stridor, wheezing, [place], sputum, other Cardiovascular: Denies: no symptoms, see HPI, chest pain, edema, palpitations, syncope, PND, other Gastrointestinal: Denies: no symptoms, see HPI, abdominal pain, constipation, diarrhea, nausea, vomiting, melena, hematemesis, other Genitourinary: Denies: no symptoms, see HPI, discharge, dysuria, frequency, hematuria, pain, retention, incontinence, urgency, vag bleed/dc, other Musculoskeletal: Denies: no symptoms, see HPI, back pain, gout, joint pain, joint swelling, muscle pain, muscle stiffness, other Skin: Denies: no symptoms, see HPI, rash, change in color, change in hair/nails , dryness, lesions, other Psychiatric: Denies: no symptoms, see HPI, prior hx, anxiety, depressed feelings, emotional problems, SI, HI, hallucinations, other Neurological: Denies: no symptoms, see HPI, headache, numbness, paresthesia, seizure, tingling, tremors, focal weakness, syncope, dizziness, other Endocrine: Denies: no symptoms, see HPI, excessive sweating, flushing, intolerance to temperature, increased thirst, increased urine, unexplained weight loss, other Hematologic/Lymphatic: Denies: no symptoms, see HPI, anemia, blood clots, easy bleeding, easy bruising, swollen glands, diathesis, other All Other Systems: negative except mentioned in HPI Physical Exam General Appearance: WD/WN, no apparent distress, alert Lines, tubes and drains: peripheral HEENT: normocephalic, atraumatic, anicteric, mucous membranes moist, PERRL Neck: non-tender, normal alignment, normal inspection Respiratory/Chest: normal breath sounds, no respiratory distress, no accessory muscle use Cardiovascular/Chest: no JVD Extremities: no calf tenderness, non-pitting, no edema, no cyanosis Skin Exam: normal pigmentation, warm/dry, no diaphoresis Neurologic: alert, oriented x 3, responsive, normal mood/affect, abnormal CN, motor weakness, other Musculoskeletal: normal muscle bulk, no effusion, atrophy Physical Exam Narrative Patient has tremors bilaterally, worse with movement and postural instability. He is alert, articulate, with good recent/ remote hx and fully oriented otherwise. He reports a history of seizure disorder but not currently taking any medications. Last 24 Hour Vital Signs Date Time Temp Pulse Resp B/P (MAP) Pulse Ox O2 Delivery O2 Flow Rate FiO2 6/7/19 16:00 99.7 76 18 152/103 (119) 97 03/31/19 12:20 160/106 03/31/19 12:00 99.3 78 18 160/106 (124) 100 03/31/19 09:00 Room Air 03/31/19 08:00 98.0 65 18 157/106 (123) 99 03/31/19 03:54 98.7 59 18 154/100 (118) 99 03/31/19 03:39 154/100 03/31/19 00:00 98.0 70 18 164/91 (115) 100 03/30/19 21:06 163/100 Intake and Output 03/30/19 03/31/19 19:00 07:00 Intake Total 2356 ml 150 ml Output Total 750 ml Balance 2356 ml -600 ml Intake Oral 150 ml IV Total 2356 ml Output Urine Total 750 ml # Voids 1 2 Laboratory Tests Test 03/31/19 05:40 White Blood Count 4.2 K/UL (4.8-10.8) L Red Blood Count 3.71 M/UL (4.70-6.10) L Hemoglobin 12.5 G/DL (14.2-18.0) L Hematocrit 37.0 % (42.0-52.0) L Mean Corpuscular Volume 100 FL (80-99) H Mean Corpuscular Hemoglobin 33.8 PG (27.0-31.0) H Mean Corpuscular Hemoglobin Concent 33.9 G/DL (32.0-36.0) Red Cell Distribution Width 12.2 % (11.6-14.8) Platelet Count 239 K/UL (150-450) Mean Platelet Volume 6.5 FL (6.5-10.1) Neutrophils (%) (Auto) 60.5 % (45.0-75.0) Lymphocytes (%) (Auto) 28.8 % (20.0-45.0) Monocytes (%) (Auto) 8.1 % (1.0-10.0) Eosinophils (%) (Auto) 0.9 % (0.0-3.0) Basophils (%) (Auto) 1.7 % (0.0-2.0) Sodium Level 136 MMOL/L (136-145) Potassium Level 4.0 MMOL/L (3.5-5.1) Chloride Level 97 MMOL/L (98-107) L Carbon Dioxide Level 28 MMOL/L (21-32) Anion Gap 11 mmol/L (5-15) Blood Urea Nitrogen 8 mg/dL (7-18) Creatinine 0.9 MG/DL (0.55-1.30) Estimat Glomerular Filtration Rate > 60 mL/min (>60) Glucose Level 78 MG/DL (74-106) Calcium Level 9.1 MG/DL (8.5-10.1) Total Bilirubin 1.5 MG/DL (0.2-1.0) H Direct Bilirubin 0.3 MG/DL (0.0-0.3) Aspartate Amino Transf (AST/SGOT) 57 U/L (15-37) H Alanine Aminotransferase (ALT/SGPT) 30 U/L (12-78) Alkaline Phosphatase 69 U/L (46-116) Total Protein 8.0 G/DL (6.4-8.2) Albumin 4.1 G/DL (3.4-5.0) Globulin 3.9 g/dL Albumin/Globulin Ratio 1.1 (1.0-2.7) Height (Feet): 6 Height (Inches): 1.00 Weight (Pounds): 155 Medications Current Medications Medications (Trade) Dose Ordered Sig/Jin Route PRN Reason Start Time Stop Time Status Last Admin Dose Admin Acetaminophen (Tylenol) 650 mg Q4H PRN ORAL fever 03/30/19 18:15 04/29/19 18:14 Albuterol/ Ipratropium (Albuterol/ Ipratropium) 3 ml Q4H PRN HHN Shortness of Breath 03/31/19 15:15 04/05/19 15:14 Chlordiazepoxide (Librium) 25 mg Q6HR ORAL 03/31/19 18:15 04/07/19 18:14 03/31/19 17:28 Clonidine HCl (Catapres Tab) 0.1 mg Q4H PRN ORAL For High Blood Pressure >160 03/30/19 18:15 04/29/19 18:14 03/31/19 12:20 Dextrose (Dextrose 50%) 25 ml Q30M PRN IV Hypoglycemia 03/30/19 18:15 04/29/19 18:14 Dextrose (Dextrose 50%) 50 ml Q30M PRN IV Hypoglycemia 03/30/19 19:00 04/29/19 18:59 Folic Acid 1 mg/ Magnesium Sulfate 2000 mg/ Multivitamins 10 ml/Potassium Chloride/Sodium Chloride 1,014.2 ml @ 125 mls/ hr Q24H IV 03/30/19 20:00 04/29/19 19:59 03/30/19 21:07 Gabapentin (Neurontin) 300 mg THREE TIMES A DAY ORAL 03/31/19 09:00 04/30/19 08:59 03/31/19 17:27 Heparin Sodium (Porcine) (Heparin 5000 units/ml) 5,000 units EVERY 12 HOURS SUBQ 03/30/19 21:00 04/29/19 20:59 03/31/19 08:33 Lorazepam (Ativan 2mg/ml 1ml) 2 mg Q1H PRN IV seizures 03/30/19 18:15 04/06/19 18:14 Morphine Sulfate (Morphine Sulfate) 1 mg Q4H PRN IVP For Pain 03/30/19 18:15 04/06/19 18:14 Ondansetron HCl (Zofran) 4 mg Q6H PRN IVP Nausea & Vomiting 03/30/19 18:15 04/29/19 18:14 03/31/19 10:07 Polyethylene Glycol (Miralax) 17 gm HSPRN PRN ORAL Constipation 03/30/19 18:15 04/29/19 18:14 Promethazine HCl/ Codeine (Phenergan with Codeine) 5 ml Q4H PRN ORAL For Cough 03/31/19 15:15 04/30/19 15:14 Theophylline (Mark-Dur) 100 mg EVERY 12 HOURS ORAL 03/31/19 21:00 04/30/19 20:59 Trimethoprim/ Sulfamethoxazole (Bactrim-DS) 1 tab TWICE A DAY ORAL 03/31/19 18:00 04/07/19 17:59 03/31/19 17:27 Zolpidem Tartrate (Ambien) 5 mg HSPRN PRN ORAL Insomnia 03/30/19 18:15 04/06/19 18:14 03/30/19 22:39 Assessment/Plan Problem List: (1) Alcohol withdrawal seizure ICD Codes: F10.239 - Alcohol dependence with withdrawal, unspecified; R56.9 - Unspecified convulsions SNOMED: 492582100 (2) Purulent bronchitis ICD Codes: J41.1 - Mucopurulent chronic bronchitis SNOMED: 21139942 (3) Seizure ICD Codes: R56.9 - Unspecified convulsions SNOMED: 09393626 (4) Alcohol withdrawal ICD Codes: F10.239 - Alcohol dependence with withdrawal, unspecified SNOMED: 223099635 (5) Drug abuse ICD Codes: F19.10 - Other psychoactive substance abuse, uncomplicated SNOMED: 00349202 (6) Lower GI bleeding ICD Codes: K92.2 - Gastrointestinal hemorrhage, unspecified SNOMED: 05026177 (7) Bronchospasm ICD Codes: J98.01 - Acute bronchospasm SNOMED: 4044416 (8) Gastritis ICD Codes: K29.70 - Gastritis, unspecified, without bleeding SNOMED: 6309079 Qualifiers: Qualified Codes: K29.20 - Alcoholic gastritis without bleeding (9) Alcohol withdrawal ICD Codes: F10.239 - Alcohol dependence with withdrawal, unspecified SNOMED: 281336631 Qualifiers: Qualified Codes: F10.239 - Alcohol dependence with withdrawal, unspecified (10) Intractable vomiting ICD Codes: R11.10 - Vomiting, unspecified SNOMED: 161925580 Qualifiers: Qualified Codes: R11.2 - Nausea with vomiting, unspecified (11) Abdominal pain ICD Codes: R10.9 - Unspecified abdominal pain SNOMED: 28304967 Qualifiers: Qualified Codes: R10.13 - Epigastric pain (12) Parkinsonian features Assessment & Plan: Patient has tremors bilaterally, worse with movement and postural instability. He is alert, articulate, with good recent/ remote hx and fully oriented otherwise. He reports a history of seizure disorder but not currently taking any medications. ICD Codes: R25.9 - Unspecified abnormal involuntary movements SNOMED: 396562505 (13) Parkinsonian tremor ICD Codes: G20 - Parkinson's disease SNOMED: 626270588 Status: stable, tolerating diet Assessment/Plan: EEG MRI w/o contrast Brain for examination of parkinsonian tremor/ seizure disorder hx Swallow study secondary to facial asymmetry and cough Discussed starting seizure meds with patient to be continued as ouptatient - patient reported having Medi/ Medi - only has Medi A on record.... encouraged him to follow up and discussed dangers of self treatment with alcohol and lowered seizure threshold on withdrawal. Also discussed psychosocial aspect with his homelessness and adjustment issues. Q4 hr Neuro Obs CIWA protocol for w/d with Ativan 1mg prn for symptoms / score > 8 and 1-2mg PRN Ativan for seizure. Check TSH SBP<140 Maintain normoglycemia with ISS Melania Ross N.P. Mar 31, 2019 20:46
[2019-03-31] MEDS: Theophylline ER 100mg ORAL SCH (20:48)
[2019-03-31] MEDS: Folic Acid 1 MG, Magnesium Sulfate 2,000 MG, Multivitamin - 12 Injection 10 ML in NS w/... IV SCH (20:48)
[2019-03-31] MEDS: Zolpidem 5mg tab ORAL PRN (21:02)
--- NOTE | 2019-03-31 21:46 | NUR ---
NURSE NOTES: SPARKLE Ross here to see patient.
--- NOTE | 2019-03-31 22:05 | NUR ---
NURSE NOTES: Tech here to do EEG, patient refuses for now, would prefer it done tomorrow morning.
--- NOTE | 2019-03-31 22:47 | NUR ---
NURSE NOTES: Spoke with RT regarding chest percussion and sputum inducement order. Patient asleep at this time, RT will come back at later time.
[2019-04-01] VITALS: BP 140/85
[2019-04-01] MEDS: chlordiazePOXIDE 25mg Cap ORAL SCH ×4 (00:10→17:56)
[2019-04-01 04:30] VITALS: BP 130/81
--- NOTE | 2019-04-01 06:15 | NUR ---
NURSE NOTES: Dr Champion here. States ok to discharge patient today. Doctor aware that MRI and EEG were ordered for today. States ok to go ahead with discharge if unable to do MRI over the weekend.
--- NOTE | 2019-04-01 06:24 | Pulmonology Progress Note ---
Assessment/Plan Problems: (1) Purulent bronchitis (2) Intractable vomiting (3) Lower GI bleeding (4) Drug abuse (5) Alcohol withdrawal seizure (6) Homelessness Assessment/Plan improving respiratory treatment neuro note appreciated dc planning Subjective ROS Limited/Unobtainable: No Constitutional: Reports: no symptoms HEENT: Repors: no symptoms Allergies: Coded Allergies: ERYTHROMYCIN BASE (Verified Allergy, Unknown, 12/07/11) Objective Last 24 Hour Vital Signs Date Time Temp Pulse Resp B/P (MAP) Pulse Ox O2 Delivery O2 Flow Rate FiO2 04/01/19 04:30 97.6 79 19 130/81 (97) 100 04/01/19 00:00 98.2 68 16 140/85 (103) 100 03/31/19 21:00 Room Air 03/31/19 20:00 99.7 81 20 149/103 (118) 97 03/31/19 19:00 81 18 99 Room Air 21 03/31/19 16:00 99.7 76 18 152/103 (119) 97 03/31/19 12:20 160/106 03/31/19 12:00 99.3 78 18 160/106 (124) 100 03/31/19 09:00 Room Air 03/31/19 08:00 98.0 65 18 157/106 (123) 99 Intake and Output 03/31/19 04/01/19 19:00 07:00 Intake Total 320 ml 1585 ml Output Total 1500 ml Balance 320 ml 85 ml Intake Oral 320 ml 460 ml IV Total 1125 ml Output Urine Total 1500 ml # Voids 3 4 # Bowel Movements 2 General Appearance: WD/WN HEENT: normocephalic, atraumatic Respiratory/Chest: chest wall non-tender, lungs clear Cardiovascular: normal peripheral pulses, normal rate Abdomen: normal bowel sounds, soft, non tender Genitourinary: normal external genitalia Skin: no rash Microbiology Date/Time Source Procedure Growth Status 03/31/19 07:55 Stool Clostridium difficile Toxin Assay - Final Complete Current Medications Medications (Trade) Dose Ordered Sig/Jin Route PRN Reason Start Time Stop Time Status Last Admin Dose Admin Acetaminophen (Tylenol) 650 mg Q4H PRN ORAL fever 03/30/19 18:15 04/29/19 18:14 Albuterol/ Ipratropium (Albuterol/ Ipratropium) 3 ml Q4H PRN HHN Shortness of Breath 03/31/19 15:15 04/05/19 15:14 Chlordiazepoxide (Librium) 25 mg Q6HR ORAL 03/31/19 18:15 04/07/19 18:14 04/01/19 05:29 Clonidine HCl (Catapres Tab) 0.1 mg Q4H PRN ORAL For High Blood Pressure >160 03/30/19 18:15 04/29/19 18:14 03/31/19 12:20 Dextrose (Dextrose 50%) 25 ml Q30M PRN IV Hypoglycemia 03/30/19 18:15 04/29/19 18:14 Dextrose (Dextrose 50%) 50 ml Q30M PRN IV Hypoglycemia 03/30/19 19:00 04/29/19 18:59 Folic Acid 1 mg/ Magnesium Sulfate 2000 mg/ Multivitamins 10 ml/Potassium Chloride/Sodium Chloride 1,014.2 ml @ 125 mls/ hr Q24H IV 03/30/19 20:00 04/29/19 19:59 03/31/19 20:48 Gabapentin (Neurontin) 300 mg THREE TIMES A DAY ORAL 03/31/19 09:00 04/30/19 08:59 03/31/19 17:27 Heparin Sodium (Porcine) (Heparin 5000 units/ml) 5,000 units EVERY 12 HOURS SUBQ 03/30/19 21:00 04/29/19 20:59 03/31/19 20:54 Lorazepam (Ativan 2mg/ml 1ml) 2 mg Q1H PRN IV seizures 03/30/19 18:15 04/06/19 18:14 Morphine Sulfate (Morphine Sulfate) 1 mg Q4H PRN IVP For Pain 03/30/19 18:15 04/06/19 18:14 03/31/19 22:12 Ondansetron HCl (Zofran) 4 mg Q6H PRN IVP Nausea & Vomiting 03/30/19 18:15 04/29/19 18:14 03/31/19 10:07 Polyethylene Glycol (Miralax) 17 gm HSPRN PRN ORAL Constipation 03/30/19 18:15 04/29/19 18:14 Promethazine HCl/ Codeine (Phenergan with Codeine) 5 ml Q4H PRN ORAL For Cough 03/31/19 15:15 04/30/19 15:14 Theophylline (Mark-Dur) 100 mg EVERY 12 HOURS ORAL 03/31/19 21:00 04/30/19 20:59 03/31/19 20:48 Trimethoprim/ Sulfamethoxazole (Bactrim-DS) 1 tab TWICE A DAY ORAL 03/31/19 18:00 04/07/19 17:59 03/31/19 17:27 Zolpidem Tartrate (Ambien) 5 mg HSPRN PRN ORAL Insomnia 03/30/19 18:15 04/06/19 18:14 03/31/19 21:02 Eligio Champion MD Apr 01, 2019 06:24
[2019-04-01 08:00] VITALS: BP 167/108
--- NOTE | 2019-04-01 08:11 | NUR ---
NURSE NOTES: Received report from Usha ORTIZ. Patient is awake alert and oriented x4, no acute distress noted, tremors noted, but patient patient is ambulatory with steady gait. Seizure precautions maintained with padded side rails. Updated patient on plan of care and discharge plan. IV came out during rounds, patient has no IV access at this time. Side rails upx2, bed low and locked, call light in reach. Will continue to monitor.
[2019-04-01] MEDS: Heparin 5000 units/ml inj SUBQ SCH (08:38)
[2019-04-01] MEDS: Bactrim-DS 1 tab ORAL SCH ×2 (08:38→17:56)
[2019-04-01] MEDS: Theophylline ER 100mg ORAL SCH (08:39)
--- NOTE | 2019-04-01 09:27 | NUR ---
CHARGE NURSE NOTES: Pt refused to be discharged until all his test are done, informed Dr Champion. Await callback orders.
[2019-04-01 10:00] VITALS: BP 150/94
[2019-04-01 12:00] VITALS: BP 160/83
--- NOTE | 2019-04-01 13:00 | NUR ---
NURSE NOTES: Patient taken down for MRI by tech.
--- NOTE | 2019-04-01 14:25 | Diagnostic Imaging Report ---
EXAM: MR Head Without Intravenous Contrast CLINICAL HISTORY: SLUR TECHNIQUE: Magnetic resonance images of the head/brain without intravenous contrast in multiple planes. COMPARISON: CT head dated 03/30/19. FINDINGS: Brain: Mild generalized cerebral parenchymal volume loss, likely age- related. Otherwise unremarkable appearance of the cerebral parenchyma. No focal restricted diffusion. No intracranial hemorrhage. No mass effect or midline shift. Ventricles: Unremarkable. No ventriculomegaly. Bones/joints: Unremarkable. Sinuses: Mild mucosal thickening throughout the maxillary sinuses and ethmoid air cells. No sinus air-fluid levels. Mastoid air cells: Unremarkable as visualized. No mastoid effusion. Orbits: Unremarkable as visualized. IMPRESSION: 1. No acute intracranial findings. No evidence of acute or subacute ischemia or infarct. 2. Mild generalized cerebral parenchymal volume loss, likely age-related.
[2019-04-01] MEDS ORDERED: INFLUENZA VACCINE IM ONE (15:30)
[2019-04-01] MEDS ORDERED: Loperamide 2mg cap ORAL SCH (15:30)
[2019-04-01 16:00] VITALS: BP 143/91
[2019-04-01] MEDS ORDERED: Pneumococcal Vaccine 25mcg/0.5ml IM ONE (16:30)
[2019-04-01] MEDS ORDERED: NS 275ml ONE (16:41)
[2019-04-01] MEDS ORDERED: Tubing IV Secondary IV ONE (16:41)
--- NOTE | 2019-04-01 17:00 | Electroencephalogram ---
DATE OF PROCEDURE: 04/01/2019 REQUESTING PHYSICIAN: Cesar Vu M.D. READING PHYSICIAN: Satnam Rousseau M.D. PROCEDURE PERFORMED: Electroencephalogram. HISTORY: This EEG was performed on a 43-year-old gentleman with a history of alcohol withdrawal, seizures, and a prior stroke. The purpose of this EEG was to evaluate the patient for ongoing ictal or interictal phenomena. TECHNICAL NOTE: This EEG was performed on a [employer] with electrodes placed on the scalp according to the International 10-20 system. Rqkbk-sd-lyjne and axgjg-ey-ood montages were used. The EEG was technically satisfactory and was performed in the awake and drowsy states. OBSERVATIONS: In the best awake state, the background activity consisted of 9-10 Hz posteriorly predominant well-developed alpha waveforms, which attenuated on eye opening. A moderate amount of superimposed beta activity was also seen throughout the tracing. Drowsiness was characterized by dissolution of the alpha rhythm and the appearance of slower frequencies in the 4-5 Hz theta range. No focal abnormalities or epileptiform discharges were seen. IMPRESSION: Normal awake and drowsy EEG. COMMENT: A normal EEG does not rule out a seizure disorder. Satnam Rousseau M.D., M.S.P.H. DR: LANCE JOB#: [id number]
--- NOTE | 2019-04-01 17:07 | General Progress Note ---
Assessment/Plan Assessment/Plan: dictated Subjective Allergies: Coded Allergies: ERYTHROMYCIN BASE (Verified Allergy, Unknown, 12/07/11) Objective Last 24 Hour Vital Signs Date Time Temp Pulse Resp B/P (MAP) Pulse Ox O2 Delivery O2 Flow Rate FiO2 04/01/19 16:00 99.2 94 18 143/91 (108) 98 04/01/19 12:00 99.4 72 20 160/83 (108) 98 04/01/19 10:00 80 150/94 (112) 04/01/19 09:00 Room Air 04/01/19 08:39 167/108 04/01/19 08:00 98.3 117 20 167/108 (127) 99 04/01/19 04:30 97.6 79 19 130/81 (97) 100 04/01/19 00:00 98.2 68 16 140/85 (103) 100 03/31/19 21:00 Room Air 03/31/19 20:00 99.7 81 20 149/103 (118) 97 03/31/19 19:00 81 18 99 Room Air 21 Intake and Output 03/31/19 04/01/19 19:00 07:00 Intake Total 320 ml 1585 ml Output Total 1500 ml Balance 320 ml 85 ml Intake Oral 320 ml 460 ml IV Total 1125 ml Output Urine Total 1500 ml # Voids 3 4 # Bowel Movements 2 Height (Feet): 6 Height (Inches): 1.00 Weight (Pounds): 155 Lauren Duque MD Apr 01, 2019 17:07
--- NOTE | 2019-04-01 17:45 | NUR ---
NURSE NOTES: Pneumonia vaccine was taken to bedside and offered to patient but patient refused vaccination after reading through vaccine pamphlet. Patient informed/educated on risks and benefits of refusal and reports understanding of provided education and risks of refusing vaccination.
--- NOTE | 2019-04-01 18:03 | NUR ---
NURSE NOTES: Patient discharged in stable condition to [facility] correction, patient in agreement to go to the correction. Patient provided with discharge education and educated on follow up appointment at [facility] on 04/17/19. Discharge handouts reviewed with patient. Patient reports understanding of all provided education and states he will attend follow up appointment on 04/17/2019. Patient also reports that he had no subsequent episodes of diarrhea after imodium administration. Patient provided with taxi voucher for transportation to [facility]. Patient taken off unit via wheelchair with all belongings and escorted to taxi.
--- NOTE | 2019-04-01 18:35 | Internal Med Progress Note ---
Subjective Date of Service: Apr 01, 2019 Physician Name Marc Temple Attending Physician Bhavin Diaz MD Allergies: Coded Allergies: ERYTHROMYCIN BASE (Verified Allergy, Unknown, 12/07/11) ROS Limited/Unobtainable: No Constitutional: Reports: no symptoms HEENT: Reports: no symptoms Cardiovascular: Reports: no symptoms Respiratory: Reports: no symptoms Gastrointestinal/Abdominal: Reports: no symptoms Genitourinary: Reports: no symptoms Neurologic/Psychiatric: Reports: no symptoms Subjective 43 YO M admitted with syncope. Cover for Int Med-Dr Diaz Objective Last Vital Signs Date Time Temp Pulse Resp B/P (MAP) Pulse Ox O2 Delivery O2 Flow Rate FiO2 04/01/19 16:00 99.2 94 18 143/91 (108) 98 04/01/19 09:00 Room Air 03/31/19 19:00 21 Microbiology Date/Time Source Procedure Growth Status 03/30/19 21:35 Nose MRSA Culture - Final NO METHICILLIN RESISTANT STAPH AUREUS... Complete 03/31/19 07:55 Stool Clostridium difficile Toxin Assay - Final Complete Intake and Output 03/31/19 04/01/19 19:00 07:00 Intake Total 320 ml 1585 ml Output Total 1500 ml Balance 320 ml 85 ml Intake Oral 320 ml 460 ml IV Total 1125 ml Output Urine Total 1500 ml # Voids 3 4 # Bowel Movements 2 Objective PHYSICAL EXAMINATION: GENERAL: The patient is a thin-appearing male, in no apparent distress. HEENT: Eyes, pupils are equal and responsive to light and accommodation. Extraocular movements are intact. NECK: Supple without lymphadenopathy. CHEST: Lungs are clear to auscultation bilaterally without wheezes or rales. CARDIOVASCULAR: Regular rhythm and rate. S1 and S2 are normal without murmurs, rubs, or gallops. ABDOMEN: Soft, nontender, and nondistended. Positive bowel sounds. No evidence of hepatosplenomegaly. Currently, no rebound or guarding noted. EXTREMITIES: Negative for clubbing, cyanosis, or edema. RECTAL/GENITAL: Refused. NEUROLOGIC: Cranial nerves II through XII are grossly intact without focal deficits. The patient does have ataxia. Assessment/Plan Assessment/Plan ASSESSMENT: This is a 43-year-old male. 1. Syncopal episode. 2. History of cerebrovascular disease. 3. Ataxia. 4. Hemiplegia. 5. Alcohol abuse. TREATMENT: 1. Syncopal episode. This may be cerebrovascular accident versus cardiac in nature. A Cardiology consultation is pending. An initial CT scan of the brain showed no acute intracranial bleed, mass, or infarct. 2. Ataxia. 3. Hemiplegia. 4. Alcohol abuse. Marc Temple MD Apr 01, 2019 18:35
--- NOTE | 2019-04-02 13:00 | Consultation ---
DATE OF CONSULTATION: 04/01/2019 GASTROENTEROLOGY CONSULTATION CONSULTING PHYSICIAN: Lauren Duque M.D. CHIEF COMPLAINT: I was asked to see the patient by Dr. Bhavin Diaz for evaluation of gastrointestinal issues. HISTORY OF PRESENT ILLNESS: The patient is a 43-year-old man with a 4-day history of nausea and vomiting. He was admitted about two days ago and was stopped yesterday. He has been tolerating liquids yesterday and solids today. He had some diarrhea as an outpatient, but none today. 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 He has had no recent antibiotics. FAMILY HISTORY: Noncontributory. SOCIAL HISTORY: The patient lives in [facility]. He has had colonoscopy years ago and he cannot recall when. He had endoscopy, but it failed to performed. REVIEW OF SYSTEMS: Otherwise negative. PHYSICAL EXAMINATION: GENERAL: Pleasant gentleman in no distress. HEENT: Normocephalic, atraumatic. Sclerae are anicteric. Oropharynx is clear. NECK: Supple. CHEST: Clear to auscultation. CARDIOVASCULAR: Revealed a regular rate. ABDOMEN: Soft. Good bowel sounds. There is no organomegaly. EXTREMITIES: Revealed no edema. NEUROLOGIC: Nonfocal. LABORATORY DATA: Noted. ASSESSMENT: This patient presents with nausea, vomiting, and diarrhea, which appears significantly improved. He is able to take oral diet. Now, his symptoms are much improved. He may have had a bout of mild gastroenteritis at this point, further evaluation not needed. If patient's symptoms persist, then a complete stool evaluation and endoscopy and colonoscopy can be indicated. For the time being, perhaps I would check for Clostridium difficile in stool to make sure there is no Clostridium difficile colitis. RECOMMENDATIONS: Per above discussion and per orders written in the chart. Thank you for asking me to participate in the care of this patient. Lauren Duque M.D. DR: AMRIK JOB#: [id number] CC: JEFFREY
--- NOTE | 2019-04-03 21:18 | Discharge Summary ---
Discharge Summary Discharge Summary _ DATE OF ADMISSION: 03/30/2019 DATE OF DISCHARGE: 04/01/2019 DISCHARGED BY: Dr. Diaz REASON FOR ADMISSION: 43 years old male with past medical history of ETOH and drug abuse, stroke ( few years ago), homeless, presented to emergency department after passing out. Patient was not sure if he had seizure. He bit his tongue. Patient felt tremulous and weak Patient admitted to binge drinking for several days. He was last sober for at least a week one week ago. Patient was not on any medication for seizure. Patient reported history of stroke several years ago and walks with cane. Patient also complained of wheezing. Patient reported nausea, vomiting and diarrhea. Upon evaluation blood pressure was elevated 160/106. Laboratory work-up revealed no leukocytosis, hemoglobin 12.5. Stable electrolytes and renal parameters. Glucose 78. AST 57, ALT 30. Total bilirubin 1.5 Albumin 4.1. Urine toxicology screen was positive for marijuana. Serum alcohol level 191. Negative Tylenol and salicylate levels. Urinalysis revealed no evidence of UTI. Troponin was negative. EKG revealed sinus rhythm, no acute ischemic changes. CT of the head demonstrated no acute intracranial bleeding, mass-effect or edema. Moderate atrophy of the cerebrum and cerebellum noted with evidence of chronic small vessel disease, involving white matter tracts. In the emergency department patient received IV hydration, Keppra and Ativan. Patient also received nebulizing treatment with bronchodilator. Patient subsequently was admitted for further management CONSULTANTS: neurologist Dr. Vu pulmonary Dr. Champion [facility] Patient admitted. [facility] protocol implemented. Patient started on IV fluids with vitamins/banana bag. Librium was on board as needed for withdrawal. Seizure precaution maintained. Ativan was on board for breakthrough seizures. Neurologist followed. Neuro-checks were done every 4 hours. Patient subsequently undergone brain MRI, which revealed no acute intracranial finding. No evidence of acute or subacute ischemia or infarct. Mild generalized cerebral parenchymal volume loss noted. EEG revealed normal awake and drowsy EEG, however normal EEG does not rule out a seizure disorder. Seizure precaution with maintained. No further evidence of seizure disorder. Patient to follow-up as outpatient for possible start of anti-seizure medication. Patient counseled on abstinence from street drugs and alcohol. Patient was informed that alcohol lowers seizure threshold. Supplemental oxygen was provided as needed to keep pulse oximetry above 90%. Pulmonary toilet with bronchodilator provided. Sputum culture was negative. Patient started on broad-spectrum antibiotic/Bactrim. Trial of theophylline started. Antitussive provided as needed. DVT and GI prophylaxis provided. Blood pressure was managed with clonidine blood pressure stabilized. GI specialist followed for initial presenting symptoms of nausea vomiting and diarrhea . Patient was treated symptomatically and was able to tolerate diet. Per GI specialist, patient likely had a bout of mild gastroenteritis. No further evaluation was required at this time. Patient also possibly may have gastritis, secondary to heavy EtOH abuse. If the patient's symptoms persist , complete full evaluation along with endoscopy and colonoscopy would be indicated. Patient noted to have diarrhea. Stool for C. difficile was negative. Imodium was provided as needed. GI prophylaxis provided. Homeless coordinator seen and evaluated patient regarding homeless needs. Patient was currently living at [facility]. Patient denied substance abuse problem. Patient refused mental health resources. Homeless coordinator spoke with the person from [facility] regarding patient discharge plans. Patient was welcome to return back to the same location. Patient agreed to the plan. Appointment was made for patient at [facility] follow-up. Pneumococcal vaccine was given prior to discharge. Patient clinically stabilized and was ready for discharge. FINAL DIAGNOSES: Alcohol withdrawal seizure Syncopal episode , possibly due to alcohol withdrawal seizure Alcohol abuse Purulent bronchitis History of CVA Homeless Possibly gastritis Probably mild gastroenteritis DISCHARGE MEDICATIONS: See Medication Reconciliation list. DISCHARGE INSTRUCTIONS: Patient was discharged to [facility]. Follow-up with [facility] as scheduled. I have been assigned to dictate discharge summary for this account. I was not involved in the patient's management. Trish Maradiaga NP Apr 03, 2019 21:18
--- NOTE | 2019-04-04 14:36 | Cardiology Report ---
APPROVED REPORT EKG Measurement Heart [id number] NM P83 [id number] Atrial flutter with variable AV block Rightward axis Septal infarct, age undetermined Abnormal ECG
== END 2019-04-01 18:00 | disposition home or self-care (01) | DRG 897 ==
LOC: EMR 09:14 → EDBEDREQ 14:41 → UNDOADMOB 14:54 → 3E 14:54 → INTOOBSV 15:26 → OBSVTOIN 15:26 → EDBEDREQ 15:59 → 3E 17:07 → UNDODISIN 04-01 18:00
DX: F10.239 Alcohol dependence with withdrawal, unspecified (principal); G40.89 Other seizures; I69.359 Hemiplegia and hemiparesis following cerebral infarction affecting unspecified side; R27.0 Ataxia, unspecified; Z88.1 Allergy status to other antibiotic agents; R55 Syncope and collapse; J41.1 Mucopurulent chronic bronchitis; Z59.0 Homelessness; K29.70 Gastritis, unspecified, without bleeding; G20 Parkinson's disease
CPT/HCPCS: 36415; 70450; 70551; 80053; 80307; 80329; 81003; 82248; 82550; 82746; 83735; 84100; 84484; 85025; 87070; 87081; 87205; 87324; 90732; 93005; 94640; 94664; 95819; 96361; 96365; 96375; 96376; 99284; J2405